=== PATIENT | male | born 1935 | race Caucasian/White ===

== ENCOUNTER → 2020-04-09 | Outpatient (CLI) | payer MEDICARE ==
[2015-10-15 16:15] VITALS: BP 124/64
[~2020-04-09] MED LIST: ASPI-482 PO; BISO5TAB8 PO; CRESTOR20 MG PO; DOCU-109 PO; FENO145T3 PO; GLIM4TAB8 PO; HYDR-2765 PO; MULT-445 PO; OMEG1CAP6 PO; PIOG30TA41 PO; RAMI10CA53 PO; SAXA1TBM3 PO
--- NOTE | 2020-04-09 12:43 | RAD ---
Examination: Ultrasound abdomen limited HISTORY: History of jaundice COMPARISON: None available Findings: The pancreas is not well-visualized due to bowel gas. The liver length measures 15.5 cm. The common bile duct measures 6.7 mm in transverse dimension. The gallbladder is mildly distended. Multiple gallstones identified within the gallbladder. The gallbladd er wall thickness measures 2.2 mm. The right kidney measures 10.8 cm in length. IMPRESSION: 1. Cholelithiasis. Electronically signed by: Constantino Ramirez MD (04/09/2020 12:40 PM) [id number]
== END ==
LOC: RAD 11:25
PROVIDERS: ATTEND Family Medicine
DX: K80.20 Calculus of gallbladder without cholecystitis without obstruction (principal); K82.8 Other specified diseases of gallbladder; R17 Unspecified jaundice
CPT/HCPCS: 76705